=== PATIENT | female | born 1970 | race African-American/Black ===

== ENCOUNTER 2023-04-22 18:20 | Inpatient (IN) | payer OTHER ==
[2023-04-22 19:19] VITALS: BMI 19.7
[2023-04-22] MEDS ORDERED: LOPERAMIDE HCL 2 MG CAPSULE PO PRN (20:31)
[2023-04-22] MEDS ORDERED: MAGNESIUM HYDROX 2400MG/30ML ORAL SUSPENSION 30 ML CUP PO PRN (20:31)
[2023-04-22] MEDS ORDERED: BENZOCAINE/MENTHOL (CHLORASEPTIC ) LOZENGE MM PRN (20:31)
[2023-04-22] MEDS ORDERED: NALOXONE HCL (KLOXXADO) 8 MG SPRAY NS PRN (20:31)
[2023-04-22] MEDS ORDERED: MAG HYDROX/AL HYDROX/SIMETH 30 ML UNIT-DOSE CUP PO PRN (20:31)
[2023-04-22] MEDS ORDERED: BENZONATATE 200 MG CAPSULE PO PRN (20:31)
[2023-04-22] MEDS ORDERED: guaiFENesin 600 MG TABLET.ER (FP) PO PRN (20:31)
[2023-04-22] MEDS ORDERED: DICYCLOMINE HCL 10 MG CAPSULE PO PRN (20:31)
[2023-04-22] MEDS ORDERED: BISMUTH SUBSALICYLATE 524 MG/30 ML PO PRN (20:31)
[2023-04-22] MEDS ORDERED: POLYETHYLENE GLYCOL (HEALTHYLAX) 3350 17 GM PACKET PO PRN (20:31)
[2023-04-22] MEDS ORDERED: NALOXONE HCL 0.4 MG/ML VIAL IM PRN (20:31)
[2023-04-22] MEDS ORDERED: methaDONE HCL 10 MG TABLET (FOR DETOX USE ONLY) PO ONE (23:00)
[2023-04-23] MEDS: THIAMINE HCL 100 MG TABLET (FP) PO SCH ×2 (01:13→22:43)
[2023-04-23] MEDS: cloNIDine HCL 0.1 MG TABLET PO PRN ×2 (01:13→10:39)
[2023-04-23] MEDS ORDERED: methaDONE HCL 10 MG TABLET (FOR DETOX USE ONLY) PO ONE ×3 (01:15→11:38)
[2023-04-23] MEDS: PRENATAL VITAMINS W/ FOLIC ACID TABLET (FP) PO SCH (10:07)
[2023-04-23] MEDS: NICOTINE 7 MG/24 HOURS TOPICAL PATCH TD SCH (10:08)
[2023-04-23 11:34] LABS: HEMATOCRIT 32.8 % (32.4-45.2); HEMOGLOBIN 10.6 GM/dL (10.7-15.3); MCHC 32.2 g/dl (32.0-36.0); MEAN CELL VOLUME 87.1 fl (80-96); MEAN PLT VOLUME 8.5 fl (7.5-11.1); PLATELET COUNT 708 10^3/uL (134-434); RBC 3.77 M/mm3 (3.60-5.2); RDW 15.9 % (11.6-15.6); WHITE BLOOD COUNT 12.7 K/mm3 (4.0-10.0)
[2023-04-23 11:36] LABS: POTASSIUM 4.9 mmol/L (3.5-5.1)
[2023-04-23 11:41] LABS: CALCIUM 9.2 mg/dL (8.5-10.1)
[2023-04-23 11:42] LABS: ALBUMIN 3.1 g/dl (3.4-5.0)
[2023-04-23 11:45] LABS: CREATININE 1.5 mg/dL (0.55-1.3)
[2023-04-23 11:46] LABS: BILIRUBIN,TOTAL 0.4 mg/dL (0.2-1); TOT PROT 7.9 g/dl (6.4-8.2)
[2023-04-23] MEDS: IBUPROFEN 600 MG TABLET (FP) PO PRN ×2 (11:49→19:53)
[2023-04-23] MEDS: ACETAMINOPHEN 325 MG TABLET (FP) PO PRN (17:31)
[2023-04-23] MEDS: MELATONIN 5 MG TABLETS PO PRN (22:43)
[2023-04-24] MEDS: cloNIDine HCL 0.1 MG TABLET PO PRN (09:49)
[2023-04-24] MEDS: IBUPROFEN 600 MG TABLET (FP) PO PRN ×2 (09:49→16:43)
[2023-04-24] MEDS: PRENATAL VITAMINS W/ FOLIC ACID TABLET (FP) PO SCH (09:49)
[2023-04-24] MEDS: NICOTINE 7 MG/24 HOURS TOPICAL PATCH TD SCH (09:49)
[2023-04-24] MEDS ORDERED: methaDONE HCL 10 MG TABLET (FOR DETOX USE ONLY) PO ONE (10:00)
[2023-04-24] MEDS: ACETAMINOPHEN 325 MG TABLET (FP) PO PRN ×2 (14:17→22:32)
[2023-04-24] MEDS: THIAMINE HCL 100 MG TABLET (FP) PO SCH (22:31)
[2023-04-24] MEDS: MELATONIN 5 MG TABLETS PO PRN (22:31)
[2023-04-25] MEDS: IBUPROFEN 600 MG TABLET (FP) PO PRN ×3 (05:54→22:34)
[2023-04-25] MEDS ORDERED: methaDONE HCL 10 MG TABLET (FOR DETOX USE ONLY) PO ONE (10:00)
[2023-04-25] MEDS: NICOTINE 7 MG/24 HOURS TOPICAL PATCH TD SCH (10:06)
[2023-04-25] MEDS: ACETAMINOPHEN 325 MG TABLET (FP) PO PRN ×2 (10:07→16:27)
[2023-04-25] MEDS: PRENATAL VITAMINS W/ FOLIC ACID TABLET (FP) PO SCH (10:08)
[2023-04-25] MEDS ORDERED: amLODIPine BESYLATE 5 MG TABLET (FP) PO SCH (11:00)
[2023-04-25] MEDS ORDERED: LISINOPRIL 10 MG TABLET PO ONE (12:58)
[2023-04-25] MEDS: ONDANSETRON *ODT* 4 MG TABLET SL PRN (21:26)
[2023-04-25] MEDS: THIAMINE HCL 100 MG TABLET (FP) PO SCH (22:32)
[2023-04-25] MEDS: MELATONIN 5 MG TABLETS PO PRN (22:33)
[2023-04-25] MEDS: P-EPHED 60MG/TRIPROLIDI 2.5MG TABLET PO PRN (22:34)
[2023-04-26] MEDS: ACETAMINOPHEN 325 MG TABLET (FP) PO PRN (03:35)
[2023-04-26] MEDS: IBUPROFEN 400 MG TABLET (FP) PO PRN ×2 (05:50→15:30)
[2023-04-26] MEDS: ONDANSETRON *ODT* 4 MG TABLET SL PRN ×2 (05:51→15:31)
[2023-04-26] MEDS ORDERED: methaDONE HCL 40 MG DISPERSABLE TABLET PO SCH (07:00)
[2023-04-26] MEDS: P-EPHED 60MG/TRIPROLIDI 2.5MG TABLET PO PRN (07:25)
[2023-04-26] MEDS ORDERED: amLODIPine BESYLATE 5 MG TABLET (FP) PO SCH (10:00)
[2023-04-26] MEDS: PRENATAL VITAMINS W/ FOLIC ACID TABLET (FP) PO SCH (10:33)
[2023-04-26] MEDS: NICOTINE 7 MG/24 HOURS TOPICAL PATCH TD SCH (10:33)
[2023-04-26] MEDS: amLODIPine BESYLATE 10 MG TABLET (FP) PO SCH (10:57)
[2023-04-26 14:18] LABS: HEMATOCRIT 31.5 % (32.4-45.2); HEMOGLOBIN 9.4 GM/dL (10.7-15.3); MCH 26.9 pg (25.7-33.7); MCHC 29.8 g/dl (32.0-36.0); MEAN CELL VOLUME 90.4 fl (80-96); MEAN PLT VOLUME 8.4 fl (7.5-11.1); PLATELET COUNT 666 10^3/uL (134-434); RBC 3.48 M/mm3 (3.60-5.2); RDW 15.9 % (11.6-15.6); WHITE BLOOD COUNT 27.6 K/mm3 (4.0-10.0)
[2023-04-26 14:24] LABS: POTASSIUM 4.9 mmol/L (3.5-5.1)
[2023-04-26 14:28] LABS: BLOOD UREA NITROGEN 37.5 mg/dL (7-18); CALCIUM 8.9 mg/dL (8.5-10.1)
[2023-04-26 14:31] LABS: BILIRUBIN,TOTAL 0.3 mg/dL (0.2-1)
[2023-04-26 14:32] LABS: TOT PROT 7.7 g/dl (6.4-8.2)
[2023-04-26 15:22] LABS: ANISOCYTOSIS 1+; MACROCYTOSIS 0
[2023-04-26] MEDS: THIAMINE HCL 100 MG TABLET (FP) PO SCH (22:35)
[2023-04-26] MEDS: MELATONIN 5 MG TABLETS PO PRN (22:35)
[2023-04-26] MEDS: IBUPROFEN 600 MG TABLET (FP) PO PRN (22:35)
[2023-04-27] MEDS: ACETAMINOPHEN 325 MG TABLET (FP) PO PRN ×2 (06:58→19:46)
[2023-04-27] MEDS: amLODIPine BESYLATE 10 MG TABLET (FP) PO SCH (10:04)
[2023-04-27] MEDS: PRENATAL VITAMINS W/ FOLIC ACID TABLET (FP) PO SCH (10:04)
[2023-04-27] MEDS: IBUPROFEN 400 MG TABLET (FP) PO PRN (10:05)
[2023-04-27] MEDS: NICOTINE 7 MG/24 HOURS TOPICAL PATCH TD SCH (10:06)
[2023-04-27] MEDS: IBUPROFEN 600 MG TABLET (FP) PO PRN (14:52)
[2023-04-27 16:53] LABS: POTASSIUM 5.5 mmol/L (3.5-5.1)
[2023-04-27 16:55] LABS: HEMATOCRIT 29.4 % (32.4-45.2); HEMOGLOBIN 8.9 GM/dL (10.7-15.3); MCH 26.9 pg (25.7-33.7); MCHC 30.3 g/dl (32.0-36.0); MEAN CELL VOLUME 88.7 fl (80-96); MEAN PLT VOLUME 7.9 fl (7.5-11.1); PLATELET COUNT 639 10^3/uL (134-434); RBC 3.31 M/mm3 (3.60-5.2); RDW 15.8 % (11.6-15.6); WHITE BLOOD COUNT 15.9 K/mm3 (4.0-10.0)
[2023-04-27 16:59] LABS: BLOOD UREA NITROGEN 35.2 mg/dL (7-18); CALCIUM 8.9 mg/dL (8.5-10.1)
[2023-04-27 17:02] LABS: CREATININE 1.8 mg/dL (0.55-1.3)
[2023-04-27 17:03] LABS: TOT PROT 7.1 g/dl (6.4-8.2)
[2023-04-27 17:07] LABS: BILIRUBIN,TOTAL 0.2 mg/dL (0.2-1)
[2023-04-27] MEDS ORDERED: MELATONIN 5 MG TABLETS PO PRN (18:28)
[2023-04-27] MEDS: SODIUM ZIRCONIUM CYCLOSILICATE (LOKELMA) 5 GM PACKET PO SCH (21:59)
[2023-04-27] MEDS: THIAMINE HCL 100 MG TABLET (FP) PO SCH (22:02)
[2023-04-27] MEDS: guaiFENesin 600 MG TABLET.ER (FP) PO SCH (22:03)
[2023-04-28] MEDS: ACETAMINOPHEN 325 MG TABLET (FP) PO PRN ×2 (06:23→14:49)
[2023-04-28] MEDS: amLODIPine BESYLATE 10 MG TABLET (FP) PO SCH (10:26)
[2023-04-28] MEDS: guaiFENesin 600 MG TABLET.ER (FP) PO SCH (10:27)
[2023-04-28] MEDS: NICOTINE 7 MG/24 HOURS TOPICAL PATCH TD SCH (10:29)
[2023-04-28] MEDS: SODIUM ZIRCONIUM CYCLOSILICATE (LOKELMA) 5 GM PACKET PO SCH (10:29)
[2023-04-28] MEDS: PRENATAL VITAMINS W/ FOLIC ACID TABLET (FP) PO SCH (10:30)
[2023-04-28 11:34] LABS: PH,URINE 7.5 (5.0-8.0); URINE APPEARANCE CLEAR; URINE BILIRUBIN NEGATIVE (NEGATIVE); URINE COLOR YELLOW; URINE GLUCOSE (UA) NEGATIVE (NEGATIVE); URINE KETONE NEGATIVE (NEGATIVE); URINE LEUK ESTERASE NEGATIVE (NEGATIVE); URINE NITRITE NEGATIVE (NEGATIVE); URINE PROTEIN TRACE (NEGATIVE); URINE UROBILINOGEN 0.2 mg/dL (0.2-1.0)
[2023-04-28] MEDS ORDERED: FERROUS SO4 325 MG TABLET (FP) PO SCH (12:15)
[2023-04-28 13:20] LABS: POTASSIUM 5.1 mmol/L (3.5-5.1)
[2023-04-28] MEDS ORDERED: NICOTINE POLACRILEX 2 MG GUM BUC PRN (13:20)
[2023-04-28] MEDS ORDERED: NICOTINE 10 MG CARTRIDGE (INHALER) IH PRN (13:20)
[2023-04-28 13:22] LABS: ALBUMIN 2.9 g/dl (3.4-5.0); CALCIUM 8.9 mg/dL (8.5-10.1)
[2023-04-28 13:25] LABS: CREATININE 1.7 mg/dL (0.55-1.3)
[2023-04-28 13:27] LABS: BILIRUBIN,TOTAL 0.2 mg/dL (0.2-1); TOT PROT 7.4 g/dl (6.4-8.2)
[2023-04-28 18:42] VITALS: BP 144/96; PULSE 98; RESP 17; TEMP 97.6
== END 2023-04-28 17:35 | disposition home or self-care (01) | DRG 773 ==
LOC: YASAS 18:20 → Y6N 22:51
PROVIDERS: ADMIT Allergy & Immunology; ATTEND Surgery
PROC: HZ2ZZZZ Detoxification Services for Substance Abuse Treatment (ICD-10-PCS; principal; 2023-04-22)
DX: F11.23 Opioid dependence with withdrawal (principal); F14.20 Cocaine dependence, uncomplicated; F12.20 Cannabis dependence, uncomplicated; F17.210 Nicotine dependence, cigarettes, uncomplicated; F19.282 Other psychoactive substance dependence with psychoactive substance-induced sleep disorder; E87.5 Hyperkalemia; N17.9 Acute kidney failure, unspecified; D64.9 Anemia, unspecified; E88.09 Other disorders of plasma-protein metabolism, not elsewhere classified; Z68.1 Body mass index [BMI] 19.9 or less, adult; M79.7 Fibromyalgia; M19.90 Unspecified osteoarthritis, unspecified site; R60.0 Localized edema; R26.89 Other abnormalities of gait and mobility; Z99.89 Dependence on other enabling machines and devices; Z86.19 Personal history of other infectious and parasitic diseases
CPT/HCPCS: 36415; 80053; 81003; 81025; 85025; 85027; 86593; 86780; 87635; 93005; 93010; Q0162

== ENCOUNTER 2023-09-03 12:13 | Inpatient (IN) | payer OTHER ==
[2023-09-03 12:59] VITALS: BMI 18.7
[2023-09-03] MEDS ORDERED: LOPERAMIDE HCL 2 MG CAPSULE PO PRN (14:53)
[2023-09-03] MEDS ORDERED: NALOXONE HCL (KLOXXADO) 8 MG SPRAY NS PRN (14:53)
[2023-09-03] MEDS ORDERED: BENZONATATE 200 MG CAPSULE PO PRN (14:53)
[2023-09-03] MEDS ORDERED: NICOTINE POLACRILEX 2 MG GUM BUC PRN (14:53)
[2023-09-03] MEDS ORDERED: BENZOCAINE/MENTHOL (CHLORASEPTIC ) LOZENGE MM PRN (14:53)
[2023-09-03] MEDS ORDERED: guaiFENesin 600 MG TABLET.ER (FP) PO PRN (14:53)
[2023-09-03] MEDS ORDERED: MAG HYDROX/AL HYDROX/SIMETH 30 ML UNIT-DOSE CUP PO PRN (14:53)
[2023-09-03] MEDS ORDERED: MAGNESIUM HYDROX 2400MG/30ML ORAL SUSPENSION 30 ML CUP PO PRN (14:53)
[2023-09-03] MEDS ORDERED: POLYETHYLENE GLYCOL (HEALTHYLAX) 3350 17 GM PACKET PO PRN (14:53)
[2023-09-03] MEDS ORDERED: NALOXONE HCL 0.4 MG/ML VIAL IM PRN (14:53)
[2023-09-03] MEDS ORDERED: IBUPROFEN 600 MG TABLET (FP) PO PRN (14:53)
[2023-09-03] MEDS ORDERED: BISMUTH SUBSALICYLATE 262 MG/15 ML BTL PO PRN (14:53)
[2023-09-03] MEDS ORDERED: IBUPROFEN 400 MG TABLET (FP) PO PRN (14:53)
[2023-09-03] MEDS ORDERED: methaDONE HCL 10 MG TABLET (FOR DETOX USE ONLY) PO ONE (14:58)
[2023-09-03] MEDS ORDERED: ALBUTEROL SO4 HFA INHALER IH PRN (15:01)
[2023-09-03] MEDS ORDERED: COLLOIDAL OATMEAL 1 EACH PACKET TP PRN (15:08)
[2023-09-03] MEDS ORDERED: methaDONE HCL 10 MG TABLET (FOR DETOX USE ONLY) ONE (15:08)
[2023-09-03] MEDS ORDERED: cloNIDine HCL 0.1 MG TABLET ONE (15:09)
[2023-09-03] MEDS: cloNIDine HCL 0.1 MG TABLET PO PRN ×2 (15:11→19:24)
[2023-09-03] MEDS: hydrOXYzine PAMOATE 25 MG CAPSULE (FP) PO PRN (19:24)
[2023-09-03] MEDS: MELATONIN 5 MG TABLETS PO SCH (22:29)
[2023-09-03] MEDS: THIAMINE HCL 100 MG TABLET (FP) PO SCH (22:29)
[2023-09-04] MEDS: cloNIDine HCL 0.1 MG TABLET PO PRN ×4 (06:55→22:26)
[2023-09-04] MEDS: PRENATAL VITAMINS W/ FOLIC ACID TABLET (FP) PO SCH (09:47)
[2023-09-04] MEDS: NICOTINE 21 MG/24 HOURS TOPICAL PATCH TD SCH (09:52)
[2023-09-04 12:11] LABS: POTASSIUM 5.4 mmol/L (3.5-5.1)
[2023-09-04 12:15] LABS: ALBUMIN 3.1 g/dl (3.4-5.0); BLOOD UREA NITROGEN 29.5 mg/dL (7-18)
[2023-09-04 12:18] LABS: CREATININE 1.9 mg/dL (0.55-1.3)
[2023-09-04 12:19] LABS: HEMATOCRIT 35.6 % (32.4-45.2); HEMOGLOBIN 11.1 GM/dL (10.7-15.3); MCH 27.6 pg (25.7-33.7); MCHC 31.3 g/dl (32.0-36.0); MEAN CELL VOLUME 88.2 fl (80-96); MEAN PLT VOLUME 7.6 fl (7.5-11.1); PLATELET COUNT 813 10^3/uL (134-434); RBC 4.03 M/mm3 (3.60-5.2); RDW 16.1 % (11.6-15.6); WHITE BLOOD COUNT 13.4 K/mm3 (4.0-10.0)
[2023-09-04 12:20] LABS: BILIRUBIN,TOTAL 0.4 mg/dL (0.2-1); TOT PROT 8.1 g/dl (6.4-8.2)
[2023-09-04] MEDS: amLODIPine BESYLATE 10 MG TABLET (FP) PO SCH (12:53)
[2023-09-04] MEDS ORDERED: SODIUM POLYSTYRENE SULFONATE 15 GM/60 ML BOTTLE RC ONE (15:07)
[2023-09-04] MEDS ORDERED: SODIUM POLYSTYRENE SULFONATE 15 GM/60 ML BOTTLE PO ONE (15:07)
[2023-09-04] MEDS: THIAMINE HCL 100 MG TABLET (FP) PO SCH (22:26)
[2023-09-04] MEDS: hydrOXYzine PAMOATE 25 MG CAPSULE (FP) PO PRN (22:26)
[2023-09-04] MEDS: MELATONIN 5 MG TABLETS PO SCH (22:26)
[2023-09-05 09:52] LABS: CALCIUM 8.8 mg/dL (8.5-10.1)
[2023-09-05 09:56] LABS: CREATININE 1.9 mg/dL (0.55-1.3)
[2023-09-05] MEDS ORDERED: methaDONE HCL 10 MG TABLET (FOR DETOX USE ONLY) PO ONE (10:00)
[2023-09-05] MEDS: PRENATAL VITAMINS W/ FOLIC ACID TABLET (FP) PO SCH (10:04)
[2023-09-05] MEDS: NICOTINE 21 MG/24 HOURS TOPICAL PATCH TD SCH (10:04)
[2023-09-05] MEDS: amLODIPine BESYLATE 10 MG TABLET (FP) PO SCH (10:04)
[2023-09-05] MEDS: ONDANSETRON *ODT* 4 MG TABLET SL PRN ×2 (10:09→17:48)
[2023-09-05] MEDS: hydrOXYzine PAMOATE 25 MG CAPSULE (FP) PO PRN (17:48)
[2023-09-05] MEDS: cloNIDine HCL 0.1 MG TABLET PO PRN ×2 (17:48→21:46)
[2023-09-05] MEDS: MELATONIN 5 MG TABLETS PO SCH (21:46)
[2023-09-05] MEDS: THIAMINE HCL 100 MG TABLET (FP) PO SCH (21:46)
[2023-09-06] MEDS: PRENATAL VITAMINS W/ FOLIC ACID TABLET (FP) PO SCH (09:33)
[2023-09-06] MEDS: NICOTINE 21 MG/24 HOURS TOPICAL PATCH TD SCH (09:33)
[2023-09-06] MEDS: amLODIPine BESYLATE 10 MG TABLET (FP) PO SCH (09:33)
[2023-09-06 15:21] LABS: POTASSIUM 4.9 mmol/L (3.5-5.1)
[2023-09-06 15:22] LABS: BLOOD UREA NITROGEN 37.5 mg/dL (7-18); CALCIUM 8.6 mg/dL (8.5-10.1)
[2023-09-06 15:26] LABS: CREATININE 1.9 mg/dL (0.55-1.3)
[2023-09-06] MEDS: ONDANSETRON *ODT* 4 MG TABLET SL PRN (18:23)
[2023-09-06] MEDS: ACETAMINOPHEN 325 MG TABLET (FP) PO PRN (19:18)
[2023-09-06] MEDS: MELATONIN 5 MG TABLETS PO SCH (22:11)
[2023-09-06] MEDS: THIAMINE HCL 100 MG TABLET (FP) PO SCH (22:11)
[2023-09-07] MEDS: ACETAMINOPHEN 325 MG TABLET (FP) PO PRN ×3 (07:54→19:58)
[2023-09-07] MEDS: NICOTINE 21 MG/24 HOURS TOPICAL PATCH TD SCH (09:09)
[2023-09-07] MEDS: hydrOXYzine PAMOATE 25 MG CAPSULE (FP) PO PRN (09:10)
[2023-09-07] MEDS: amLODIPine BESYLATE 10 MG TABLET (FP) PO SCH (09:10)
[2023-09-07] MEDS: PRENATAL VITAMINS W/ FOLIC ACID TABLET (FP) PO SCH (09:10)
[2023-09-07] MEDS ORDERED: methaDONE HCL 10 MG TABLET (FOR DETOX USE ONLY) PO ONE (10:00)
[2023-09-07] MEDS: metoPROLOL SUCCINATE 25 MG TAB.SR.24H (FP) PO SCH (14:39)
[2023-09-07] MEDS: ONDANSETRON *ODT* 4 MG TABLET SL PRN (17:38)
[2023-09-07] MEDS ORDERED: traZODone HCL 50 MG TABLET (FP) PO SCH ×2 (22:00)
[2023-09-07] MEDS: THIAMINE HCL 100 MG TABLET (FP) PO SCH (22:08)
[2023-09-07] MEDS: MELATONIN 5 MG TABLETS PO SCH (22:08)
[2023-09-08] MEDS: ACETAMINOPHEN 325 MG TABLET (FP) PO PRN (06:01)
[2023-09-08 06:15] VITALS: RESP 17
[2023-09-08] MEDS ORDERED: COLLOIDAL OATMEAL 1 BAR EACH TP PRN (09:20)
[2023-09-08] MEDS: amLODIPine BESYLATE 10 MG TABLET (FP) PO SCH (09:21)
[2023-09-08] MEDS: NICOTINE 21 MG/24 HOURS TOPICAL PATCH TD SCH (09:21)
[2023-09-08] MEDS: PRENATAL VITAMINS W/ FOLIC ACID TABLET (FP) PO SCH (09:22)
[2023-09-08] MEDS: metoPROLOL SUCCINATE 25 MG TAB.SR.24H (FP) PO SCH (09:22)
[2023-09-08] MEDS: ONDANSETRON *ODT* 4 MG TABLET SL PRN (12:35)
[2023-09-08 14:36] VITALS: BP 132/80; PULSE 77; TEMP 97.7
== END 2023-09-08 15:26 | disposition other institution (70) | DRG 774 ==
LOC: YASAS 12:13 → Y3N 15:38
PROVIDERS: ADMIT Allergy & Immunology; ATTEND Surgery
PROC: HZ2ZZZZ Detoxification Services for Substance Abuse Treatment (ICD-10-PCS; principal; 2023-09-03)
DX: F10.230 Alcohol dependence with withdrawal, uncomplicated (principal); F14.20 Cocaine dependence, uncomplicated; F17.210 Nicotine dependence, cigarettes, uncomplicated; E87.5 Hyperkalemia; G47.00 Insomnia, unspecified; I10 Essential (primary) hypertension; M19.91 Primary osteoarthritis, unspecified site; Z99.89 Dependence on other enabling machines and devices; Z56.0 Unemployment, unspecified; Z59.00 Homelessness unspecified
CPT/HCPCS: 36415; 80048; 80053; 85027; 86593; 86780; 87635; 93005; 93010; Q0162

== ENCOUNTER 2023-09-08 15:32 | Inpatient (IN) | payer OTHER ==
[2023-09-08] MEDS ORDERED: MAG HYDROX/AL HYDROX/SIMETH 30 ML UNIT-DOSE CUP PO PRN (18:29)
[2023-09-08] MEDS ORDERED: POLYETHYLENE GLYCOL (HEALTHYLAX) 3350 17 GM PACKET PO PRN (18:29)
[2023-09-08] MEDS ORDERED: P-EPHED 60MG/TRIPROLIDI 2.5MG TABLET PO PRN (18:29)
[2023-09-08] MEDS ORDERED: LOPERAMIDE HCL 2 MG CAPSULE PO PRN (18:29)
[2023-09-08] MEDS ORDERED: NICOTINE POLACRILEX 2 MG GUM BUC PRN (18:29)
[2023-09-08] MEDS ORDERED: COLLOIDAL OATMEAL 1 BAR EACH TP PRN (18:29)
[2023-09-08] MEDS ORDERED: IBUPROFEN 600 MG TABLET (FP) PO PRN (18:29)
[2023-09-08] MEDS ORDERED: IBUPROFEN 400 MG TABLET (FP) PO PRN (18:29)
[2023-09-08] MEDS ORDERED: MAGNESIUM HYDROX 2400MG/30ML ORAL SUSPENSION 30 ML CUP PO PRN (18:29)
[2023-09-08] MEDS ORDERED: BENZONATATE 200 MG CAPSULE PO PRN (18:29)
[2023-09-08] MEDS ORDERED: BENZOCAINE/MENTHOL (CHLORASEPTIC ) LOZENGE MM PRN (18:29)
[2023-09-08] MEDS: METHOCARBAMOL 500 MG TABLET PO PRN (18:56)
[2023-09-08] MEDS: ACETAMINOPHEN 325 MG TABLET (FP) PO PRN (18:56)
[2023-09-08] MEDS: hydrOXYzine PAMOATE 25 MG CAPSULE (FP) PO PRN (21:33)
[2023-09-08] MEDS: THIAMINE HCL 100 MG TABLET (FP) PO SCH (21:33)
[2023-09-08] MEDS: MELATONIN 5 MG TABLETS PO SCH (21:33)
[2023-09-08] MEDS: ALBUTEROL SO4 HFA INHALER IH PRN (21:35)
[2023-09-09] MEDS: hydrOXYzine PAMOATE 25 MG CAPSULE (FP) PO PRN (06:50)
[2023-09-09] MEDS: ACETAMINOPHEN 325 MG TABLET (FP) PO PRN ×2 (06:50→18:42)
[2023-09-09] MEDS ORDERED: amLODIPine BESYLATE 10 MG TABLET (FP) PO SCH (10:00)
[2023-09-09] MEDS ORDERED: FLU VACCINE (FLULAVAL) PF 60 MCG/0.5 ML SYRINGE 2023-2024 IM ONE (10:00)
[2023-09-09] MEDS ORDERED: amLODIPine BESYLATE 10 MG TABLET (FP) PO ONE (10:32)
[2023-09-09] MEDS: PRENATAL VITAMINS W/ FOLIC ACID TABLET (FP) PO SCH (10:33)
[2023-09-09] MEDS: guaiFENesin 600 MG TABLET.ER (FP) PO PRN (10:42)
[2023-09-09] MEDS: NICOTINE 21 MG/24 HOURS TOPICAL PATCH TD SCH (11:09)
[2023-09-09] MEDS: traZODone HCL 50 MG TABLET (FP) PO SCH (21:11)
[2023-09-09] MEDS: MELATONIN 5 MG TABLETS PO SCH (21:12)
[2023-09-09] MEDS: THIAMINE HCL 100 MG TABLET (FP) PO SCH (21:12)
[2023-09-09] MEDS: METHOCARBAMOL 500 MG TABLET PO PRN (21:12)
[2023-09-09] MEDS: ALBUTEROL SO4 HFA INHALER IH PRN (21:13)
[2023-09-10] MEDS ORDERED: amLODIPine BESYLATE 10 MG TABLET (FP) PO SCH (06:00)
[2023-09-10] MEDS: amLODIPine BESYLATE 10 MG TABLET (FP) PO SCH (06:23)
[2023-09-10] MEDS: ACETAMINOPHEN 325 MG TABLET (FP) PO PRN ×3 (06:24→20:14)
[2023-09-10] MEDS ORDERED: PNEUMOC 20-VAL CONJ-DIP CRM/PF 0.5 ML SYRINGE IM ONE (10:00)
[2023-09-10] MEDS: PRENATAL VITAMINS W/ FOLIC ACID TABLET (FP) PO SCH (10:27)
[2023-09-10] MEDS: NICOTINE 21 MG/24 HOURS TOPICAL PATCH TD SCH (10:27)
[2023-09-10] MEDS: METHOCARBAMOL 500 MG TABLET PO PRN ×2 (10:29→21:10)
[2023-09-10] MEDS: guaiFENesin 600 MG TABLET.ER (FP) PO PRN ×2 (10:30→21:10)
[2023-09-10] MEDS: traZODone HCL 50 MG TABLET (FP) PO SCH (21:10)
[2023-09-10] MEDS: THIAMINE HCL 100 MG TABLET (FP) PO SCH (21:10)
[2023-09-10] MEDS: cloNIDine HCL 0.1 MG TABLET PO PRN (21:10)
[2023-09-10] MEDS: MELATONIN 5 MG TABLETS PO SCH (21:10)
[2023-09-10] MEDS: hydrOXYzine PAMOATE 25 MG CAPSULE (FP) PO PRN (21:11)
[2023-09-10] MEDS: ALBUTEROL SO4 HFA INHALER IH PRN (21:12)
[2023-09-11] MEDS: ACETAMINOPHEN 325 MG TABLET (FP) PO PRN ×3 (06:31→23:27)
[2023-09-11] MEDS: amLODIPine BESYLATE 10 MG TABLET (FP) PO SCH (06:32)
[2023-09-11] MEDS: NICOTINE 21 MG/24 HOURS TOPICAL PATCH TD SCH (10:26)
[2023-09-11] MEDS: PRENATAL VITAMINS W/ FOLIC ACID TABLET (FP) PO SCH (10:26)
[2023-09-11] MEDS: ALBUTEROL SO4 HFA INHALER IH PRN (21:48)
[2023-09-11] MEDS: METHOCARBAMOL 500 MG TABLET PO PRN (21:49)
[2023-09-11] MEDS: MELATONIN 5 MG TABLETS PO SCH (21:49)
[2023-09-11] MEDS: THIAMINE HCL 100 MG TABLET (FP) PO SCH (21:49)
[2023-09-11] MEDS: traZODone HCL 50 MG TABLET (FP) PO SCH (21:49)
[2023-09-12] MEDS: amLODIPine BESYLATE 10 MG TABLET (FP) PO SCH (07:02)
[2023-09-12] MEDS: ACETAMINOPHEN 325 MG TABLET (FP) PO PRN ×2 (07:02→18:52)
[2023-09-12] MEDS: NICOTINE 21 MG/24 HOURS TOPICAL PATCH TD SCH (10:22)
[2023-09-12] MEDS: PRENATAL VITAMINS W/ FOLIC ACID TABLET (FP) PO SCH (10:22)
[2023-09-12] MEDS: METHOCARBAMOL 500 MG TABLET PO PRN (18:52)
[2023-09-12] MEDS: THIAMINE HCL 100 MG TABLET (FP) PO SCH (21:16)
[2023-09-12] MEDS: traZODone HCL 50 MG TABLET (FP) PO SCH (21:16)
[2023-09-12] MEDS: hydrOXYzine PAMOATE 25 MG CAPSULE (FP) PO PRN (21:17)
[2023-09-12] MEDS: ALBUTEROL SO4 HFA INHALER IH PRN (21:18)
[2023-09-12] MEDS: MELATONIN 5 MG TABLETS PO SCH (21:58)
[2023-09-13] MEDS: amLODIPine BESYLATE 10 MG TABLET (FP) PO SCH (07:00)
[2023-09-13] MEDS: ACETAMINOPHEN 325 MG TABLET (FP) PO PRN ×3 (07:07→21:21)
[2023-09-13] MEDS: PRENATAL VITAMINS W/ FOLIC ACID TABLET (FP) PO SCH (10:08)
[2023-09-13] MEDS: NICOTINE 21 MG/24 HOURS TOPICAL PATCH TD SCH (10:08)
[2023-09-13] MEDS: METHOCARBAMOL 500 MG TABLET PO PRN ×2 (10:16→21:23)
[2023-09-13] MEDS: THIAMINE HCL 100 MG TABLET (FP) PO SCH (21:19)
[2023-09-13] MEDS: traZODone HCL 50 MG TABLET (FP) PO SCH (21:20)
[2023-09-13] MEDS: MELATONIN 5 MG TABLETS PO SCH (21:21)
[2023-09-14] MEDS: amLODIPine BESYLATE 10 MG TABLET (FP) PO SCH (06:43)
[2023-09-14] MEDS: METHOCARBAMOL 500 MG TABLET PO PRN (06:43)
[2023-09-14] MEDS: ACETAMINOPHEN 325 MG TABLET (FP) PO PRN ×2 (06:43→17:44)
[2023-09-14] MEDS: NICOTINE 21 MG/24 HOURS TOPICAL PATCH TD SCH (10:31)
[2023-09-14] MEDS: PRENATAL VITAMINS W/ FOLIC ACID TABLET (FP) PO SCH (10:31)
[2023-09-14] MEDS ORDERED: LIDOCAINE 5% TOPICAL PATCH TP ONE (12:04)
[2023-09-14] MEDS: METHYL SALICYLATE/MENTHOL OINT 30 GM TUBE TP SCH (12:06)
[2023-09-14] MEDS: traZODone HCL 50 MG TABLET (FP) PO SCH (21:29)
[2023-09-14] MEDS: MELATONIN 5 MG TABLETS PO SCH (21:29)
[2023-09-14] MEDS: THIAMINE HCL 100 MG TABLET (FP) PO SCH (21:29)
[2023-09-14] MEDS: cloNIDine HCL 0.1 MG TABLET PO PRN (21:37)
[2023-09-14] MEDS ORDERED: LIDOCAINE PATCH REMOVAL MC SCH (22:00)
[2023-09-15] MEDS: ACETAMINOPHEN 325 MG TABLET (FP) PO PRN ×3 (06:39→21:14)
[2023-09-15] MEDS: amLODIPine BESYLATE 10 MG TABLET (FP) PO SCH (06:40)
[2023-09-15] MEDS: NICOTINE 21 MG/24 HOURS TOPICAL PATCH TD SCH (10:23)
[2023-09-15] MEDS: PRENATAL VITAMINS W/ FOLIC ACID TABLET (FP) PO SCH (10:23)
[2023-09-15] MEDS: METHYL SALICYLATE/MENTHOL OINT 30 GM TUBE TP SCH (10:24)
[2023-09-15] MEDS ORDERED: LIDOCAINE 4% PATCH TP ONE (10:27)
[2023-09-15] MEDS: LIDOCAINE 4% PATCH TP SCH (11:01)
[2023-09-15] MEDS: traZODone HCL 50 MG TABLET (FP) PO SCH (21:13)
[2023-09-15] MEDS: cloNIDine HCL 0.1 MG TABLET PO PRN (21:13)
[2023-09-15] MEDS: MELATONIN 5 MG TABLETS PO SCH (21:13)
[2023-09-15] MEDS: THIAMINE HCL 100 MG TABLET (FP) PO SCH (21:13)
[2023-09-15] MEDS ORDERED: LIDOCAINE PATCH REMOVAL MC SCH (22:00)
[2023-09-16] MEDS: ACETAMINOPHEN 325 MG TABLET (FP) PO PRN ×3 (06:29→21:36)
[2023-09-16] MEDS: amLODIPine BESYLATE 10 MG TABLET (FP) PO SCH (06:29)
[2023-09-16] MEDS: PRENATAL VITAMINS W/ FOLIC ACID TABLET (FP) PO SCH (10:11)
[2023-09-16] MEDS: METHYL SALICYLATE/MENTHOL OINT 30 GM TUBE TP SCH (10:12)
[2023-09-16] MEDS: LIDOCAINE 4% PATCH TP SCH (10:12)
[2023-09-16] MEDS: NICOTINE 21 MG/24 HOURS TOPICAL PATCH TD SCH (10:12)
[2023-09-16] MEDS ORDERED: LIDOCAINE 4% PATCH TP ONE (15:28)
[2023-09-16] MEDS: LIDOCAINE PATCH REMOVAL MC SCH ×2 (16:20→21:38)
[2023-09-16] MEDS: THIAMINE HCL 100 MG TABLET (FP) PO SCH (21:35)
[2023-09-16] MEDS: traZODone HCL 50 MG TABLET (FP) PO SCH (21:36)
[2023-09-16] MEDS: ALBUTEROL SO4 HFA INHALER IH PRN (21:37)
[2023-09-16] MEDS: MELATONIN 5 MG TABLETS PO SCH (21:53)
[2023-09-17] MEDS: ACETAMINOPHEN 325 MG TABLET (FP) PO PRN ×3 (06:46→21:27)
[2023-09-17] MEDS: amLODIPine BESYLATE 10 MG TABLET (FP) PO SCH (06:46)
[2023-09-17] MEDS: PRENATAL VITAMINS W/ FOLIC ACID TABLET (FP) PO SCH (10:05)
[2023-09-17] MEDS: LIDOCAINE 4% PATCH TP SCH (10:06)
[2023-09-17] MEDS: METHYL SALICYLATE/MENTHOL OINT 30 GM TUBE TP SCH (10:06)
[2023-09-17] MEDS: NICOTINE 21 MG/24 HOURS TOPICAL PATCH TD SCH (10:07)
[2023-09-17] MEDS: LIDOCAINE PATCH REMOVAL MC SCH ×2 (13:25→21:28)
[2023-09-17] MEDS: hydrOXYzine PAMOATE 25 MG CAPSULE (FP) PO PRN ×2 (13:30→21:27)
[2023-09-17] MEDS: traZODone HCL 50 MG TABLET (FP) PO SCH (21:26)
[2023-09-17] MEDS: ALBUTEROL SO4 HFA INHALER IH PRN (21:26)
[2023-09-17] MEDS: THIAMINE HCL 100 MG TABLET (FP) PO SCH (21:26)
[2023-09-17] MEDS: MELATONIN 5 MG TABLETS PO SCH (21:28)
[2023-09-18] MEDS: amLODIPine BESYLATE 10 MG TABLET (FP) PO SCH (07:00)
[2023-09-18] MEDS: ACETAMINOPHEN 325 MG TABLET (FP) PO PRN ×2 (07:00→14:11)
[2023-09-18] MEDS: LIDOCAINE 4% PATCH TP SCH (10:37)
[2023-09-18] MEDS: PRENATAL VITAMINS W/ FOLIC ACID TABLET (FP) PO SCH (10:37)
[2023-09-18] MEDS: NICOTINE 21 MG/24 HOURS TOPICAL PATCH TD SCH (10:37)
[2023-09-18] MEDS: METHYL SALICYLATE/MENTHOL OINT 30 GM TUBE TP SCH (10:38)
[2023-09-18] MEDS: LIDOCAINE PATCH REMOVAL MC SCH ×2 (10:40→21:11)
[2023-09-18] MEDS: THIAMINE HCL 100 MG TABLET (FP) PO SCH (21:10)
[2023-09-18] MEDS: traZODone HCL 50 MG TABLET (FP) PO SCH (21:10)
[2023-09-18] MEDS: MELATONIN 5 MG TABLETS PO SCH (21:10)
[2023-09-18] MEDS: hydrOXYzine PAMOATE 25 MG CAPSULE (FP) PO PRN (21:10)
[2023-09-19] MEDS: amLODIPine BESYLATE 10 MG TABLET (FP) PO SCH (07:07)
[2023-09-19] MEDS: ACETAMINOPHEN 325 MG TABLET (FP) PO PRN ×2 (07:07→17:53)
[2023-09-19] MEDS: PRENATAL VITAMINS W/ FOLIC ACID TABLET (FP) PO SCH (10:16)
[2023-09-19] MEDS: LIDOCAINE PATCH REMOVAL MC SCH ×2 (10:16→21:55)
[2023-09-19] MEDS: LIDOCAINE 4% PATCH TP SCH (10:16)
[2023-09-19] MEDS: NICOTINE 21 MG/24 HOURS TOPICAL PATCH TD SCH (10:16)
[2023-09-19] MEDS: METHYL SALICYLATE/MENTHOL OINT 30 GM TUBE TP SCH (10:20)
[2023-09-19] MEDS: MELATONIN 5 MG TABLETS PO SCH (21:55)
[2023-09-19] MEDS: THIAMINE HCL 100 MG TABLET (FP) PO SCH (21:55)
[2023-09-19] MEDS: traZODone HCL 50 MG TABLET (FP) PO SCH (21:55)
[2023-09-19] MEDS: hydrOXYzine PAMOATE 25 MG CAPSULE (FP) PO PRN (21:56)
[2023-09-20] MEDS: ACETAMINOPHEN 325 MG TABLET (FP) PO PRN ×2 (06:44→18:19)
[2023-09-20] MEDS: amLODIPine BESYLATE 10 MG TABLET (FP) PO SCH (06:45)
[2023-09-20] MEDS: LIDOCAINE 4% PATCH TP SCH (10:04)
[2023-09-20] MEDS: PRENATAL VITAMINS W/ FOLIC ACID TABLET (FP) PO SCH (10:04)
[2023-09-20] MEDS: LIDOCAINE PATCH REMOVAL MC SCH ×2 (10:05→22:31)
[2023-09-20] MEDS: NICOTINE 21 MG/24 HOURS TOPICAL PATCH TD SCH (10:05)
[2023-09-20] MEDS: METHYL SALICYLATE/MENTHOL OINT 30 GM TUBE TP SCH (10:07)
[2023-09-20] MEDS: traZODone HCL 50 MG TABLET (FP) PO SCH (21:26)
[2023-09-20] MEDS: THIAMINE HCL 100 MG TABLET (FP) PO SCH (21:26)
[2023-09-20] MEDS: hydrOXYzine PAMOATE 25 MG CAPSULE (FP) PO PRN (21:26)
[2023-09-20] MEDS: MELATONIN 5 MG TABLETS PO SCH (21:26)
[2023-09-21] MEDS: amLODIPine BESYLATE 10 MG TABLET (FP) PO SCH (06:45)
[2023-09-21] MEDS: ACETAMINOPHEN 325 MG TABLET (FP) PO PRN ×2 (06:45→18:17)
[2023-09-21] MEDS: PRENATAL VITAMINS W/ FOLIC ACID TABLET (FP) PO SCH (10:13)
[2023-09-21] MEDS: LIDOCAINE 4% PATCH TP SCH (10:13)
[2023-09-21] MEDS: NICOTINE 21 MG/24 HOURS TOPICAL PATCH TD SCH (10:13)
[2023-09-21] MEDS: METHYL SALICYLATE/MENTHOL OINT 30 GM TUBE TP SCH (10:13)
[2023-09-21] MEDS: cloNIDine HCL 0.1 MG TABLET PO PRN (18:22)
[2023-09-21] MEDS: LIDOCAINE PATCH REMOVAL MC SCH (21:09)
[2023-09-21] MEDS: THIAMINE HCL 100 MG TABLET (FP) PO SCH (21:09)
[2023-09-21] MEDS: hydrOXYzine PAMOATE 25 MG CAPSULE (FP) PO PRN (21:09)
[2023-09-21] MEDS: MELATONIN 5 MG TABLETS PO SCH (21:09)
[2023-09-21] MEDS: traZODone HCL 50 MG TABLET (FP) PO SCH (21:11)
[2023-09-22] MEDS: ACETAMINOPHEN 325 MG TABLET (FP) PO PRN ×2 (06:18→18:14)
[2023-09-22] MEDS: amLODIPine BESYLATE 10 MG TABLET (FP) PO SCH (06:19)
[2023-09-22] MEDS: LIDOCAINE 4% PATCH TP SCH (09:32)
[2023-09-22] MEDS: NICOTINE 21 MG/24 HOURS TOPICAL PATCH TD SCH (09:33)
[2023-09-22] MEDS: PRENATAL VITAMINS W/ FOLIC ACID TABLET (FP) PO SCH (09:33)
[2023-09-22] MEDS: METHYL SALICYLATE/MENTHOL OINT 30 GM TUBE TP SCH (09:34)
[2023-09-22] MEDS: hydrOXYzine PAMOATE 25 MG CAPSULE (FP) PO PRN (18:14)
[2023-09-22] MEDS: MELATONIN 5 MG TABLETS PO SCH (21:25)
[2023-09-22] MEDS: traZODone HCL 50 MG TABLET (FP) PO SCH (21:25)
[2023-09-22] MEDS: cloNIDine HCL 0.1 MG TABLET PO PRN (21:26)
[2023-09-22] MEDS: THIAMINE HCL 100 MG TABLET (FP) PO SCH (21:26)
[2023-09-22] MEDS: LIDOCAINE PATCH REMOVAL MC SCH (21:50)
[2023-09-23] MEDS: ACETAMINOPHEN 325 MG TABLET (FP) PO PRN ×2 (06:55→17:36)
[2023-09-23] MEDS: amLODIPine BESYLATE 10 MG TABLET (FP) PO SCH (06:55)
[2023-09-23] MEDS: LIDOCAINE 4% PATCH TP SCH (10:41)
[2023-09-23] MEDS: PRENATAL VITAMINS W/ FOLIC ACID TABLET (FP) PO SCH (10:41)
[2023-09-23] MEDS: METHYL SALICYLATE/MENTHOL OINT 30 GM TUBE TP SCH (10:41)
[2023-09-23] MEDS: NICOTINE 21 MG/24 HOURS TOPICAL PATCH TD SCH (10:42)
[2023-09-23] MEDS: hydrOXYzine PAMOATE 25 MG CAPSULE (FP) PO PRN ×2 (17:35→22:02)
[2023-09-23] MEDS: THIAMINE HCL 100 MG TABLET (FP) PO SCH (22:02)
[2023-09-23] MEDS: traZODone HCL 50 MG TABLET (FP) PO SCH (22:02)
[2023-09-23] MEDS: MELATONIN 5 MG TABLETS PO SCH (22:04)
[2023-09-23] MEDS: LIDOCAINE PATCH REMOVAL MC SCH (22:41)
[2023-09-24] MEDS: ACETAMINOPHEN 325 MG TABLET (FP) PO PRN ×2 (07:07→16:27)
[2023-09-24] MEDS: amLODIPine BESYLATE 10 MG TABLET (FP) PO SCH (07:07)
[2023-09-24] MEDS: NICOTINE 21 MG/24 HOURS TOPICAL PATCH TD SCH (10:12)
[2023-09-24] MEDS: PRENATAL VITAMINS W/ FOLIC ACID TABLET (FP) PO SCH (10:12)
[2023-09-24] MEDS: LIDOCAINE 4% PATCH TP SCH (10:12)
[2023-09-24] MEDS: METHYL SALICYLATE/MENTHOL OINT 30 GM TUBE TP SCH (10:13)
[2023-09-24] MEDS: MELATONIN 5 MG TABLETS PO SCH (21:19)
[2023-09-24] MEDS: THIAMINE HCL 100 MG TABLET (FP) PO SCH (21:19)
[2023-09-24] MEDS: traZODone HCL 50 MG TABLET (FP) PO SCH (21:19)
[2023-09-24] MEDS: LIDOCAINE PATCH REMOVAL MC SCH (21:20)
[2023-09-24] MEDS: hydrOXYzine PAMOATE 25 MG CAPSULE (FP) PO PRN (21:20)
[2023-09-25] MEDS: ACETAMINOPHEN 325 MG TABLET (FP) PO PRN ×3 (06:40→21:46)
[2023-09-25] MEDS: amLODIPine BESYLATE 10 MG TABLET (FP) PO SCH (06:40)
[2023-09-25 07:23] VITALS: RESP 18
[2023-09-25] MEDS: PRENATAL VITAMINS W/ FOLIC ACID TABLET (FP) PO SCH (09:48)
[2023-09-25] MEDS: NICOTINE 21 MG/24 HOURS TOPICAL PATCH TD SCH (09:48)
[2023-09-25] MEDS: LIDOCAINE 4% PATCH TP SCH (09:48)
[2023-09-25] MEDS: METHYL SALICYLATE/MENTHOL OINT 30 GM TUBE TP SCH (09:50)
[2023-09-25] MEDS: hydrOXYzine PAMOATE 25 MG CAPSULE (FP) PO PRN ×2 (16:07→21:46)
[2023-09-25] MEDS: THIAMINE HCL 100 MG TABLET (FP) PO SCH (21:46)
[2023-09-25] MEDS: traZODone HCL 50 MG TABLET (FP) PO SCH (21:46)
[2023-09-25] MEDS: LIDOCAINE PATCH REMOVAL MC SCH (21:46)
[2023-09-25] MEDS: MELATONIN 5 MG TABLETS PO SCH (21:46)
[2023-09-26] MEDS: ACETAMINOPHEN 325 MG TABLET (FP) PO PRN ×3 (06:43→21:30)
[2023-09-26] MEDS: amLODIPine BESYLATE 10 MG TABLET (FP) PO SCH (06:44)
[2023-09-26 09:14] VITALS: PULSE 99
[2023-09-26] MEDS: NICOTINE 21 MG/24 HOURS TOPICAL PATCH TD SCH (09:51)
[2023-09-26] MEDS: PRENATAL VITAMINS W/ FOLIC ACID TABLET (FP) PO SCH (09:51)
[2023-09-26] MEDS: LIDOCAINE 4% PATCH TP SCH (09:51)
[2023-09-26] MEDS: METHYL SALICYLATE/MENTHOL OINT 30 GM TUBE TP SCH (09:52)
[2023-09-26] MEDS: hydrOXYzine PAMOATE 25 MG CAPSULE (FP) PO PRN ×2 (15:46→21:30)
[2023-09-26] MEDS: MELATONIN 5 MG TABLETS PO SCH (21:30)
[2023-09-26] MEDS: THIAMINE HCL 100 MG TABLET (FP) PO SCH (21:30)
[2023-09-26] MEDS: traZODone HCL 50 MG TABLET (FP) PO SCH (21:31)
[2023-09-26] MEDS: LIDOCAINE PATCH REMOVAL MC SCH (21:31)
[2023-09-27] MEDS: ACETAMINOPHEN 325 MG TABLET (FP) PO PRN (06:58)
[2023-09-27] MEDS: amLODIPine BESYLATE 10 MG TABLET (FP) PO SCH (06:58)
[2023-09-27 07:30] VITALS: BP 135/86; TEMP 98.1
[2023-09-27] MEDS: PRENATAL VITAMINS W/ FOLIC ACID TABLET (FP) PO SCH (09:19)
[2023-09-27] MEDS: LIDOCAINE 4% PATCH TP SCH (09:19)
[2023-09-27] MEDS: METHYL SALICYLATE/MENTHOL OINT 30 GM TUBE TP SCH (09:23)
[2023-09-27] MEDS: NICOTINE 21 MG/24 HOURS TOPICAL PATCH TD SCH (09:23)
== END 2023-09-27 09:35 | disposition home or self-care (01) | DRG 772 ==
LOC: YASAS 15:32 → Y5N 15:37
PROVIDERS: ADMIT Allergy & Immunology; ATTEND Psychiatry & Neurology Pain Medicine
PROC: HZ42ZZZ Group Counseling for Substance Abuse Treatment, Cognitive-Behavioral (ICD-10-PCS; principal; 2023-09-08)
DX: F11.20 Opioid dependence, uncomplicated (principal); F14.20 Cocaine dependence, uncomplicated; F17.210 Nicotine dependence, cigarettes, uncomplicated; G47.00 Insomnia, unspecified; I10 Essential (primary) hypertension; J45.909 Unspecified asthma, uncomplicated; M79.7 Fibromyalgia; M16.12 Unilateral primary osteoarthritis, left hip; M25.461 Effusion, right knee; Z86.19 Personal history of other infectious and parasitic diseases; Z99.89 Dependence on other enabling machines and devices; S99.911A Unspecified injury of right ankle, initial encounter; W18.30XA Fall on same level, unspecified, initial encounter; Y92.230 Patient room in hospital as the place of occurrence of the external cause
CPT/HCPCS: 36415; 73560-TC-RT-FY; 82652; 83735; 90677; 90686; G0008